=== PATIENT | female | born 1960 | race Caucasian/White ===

== ENCOUNTER → 2017-09-01 16:30 | Outpatient (CLI) | payer OTHER, SELFPAY ==
[2017-09-04 11:02] LABS: HPV Reflexed? NOT INDICATED
== END ==
PROVIDERS: Visit Provider Obstetrics & Gynecology
DX: Z12.4 Encounter for screening for malignant neoplasm of cervix (principal)
CPT/HCPCS: 88175; G0145

== ENCOUNTER 2017-09-20 10:43 | Day surgery (SDC) | payer OTHER, SELFPAY ==
[2017-09-15 17:11] LABS: Hematocrit 37.9 % (37-47); Hemoglobin 12.5 g/dl (12.0-15.0); Mean Corpuscular Hgb 29.1 pg (27.0-32.0); Mean Corpuscular Volume 88.1 fL (81-99); Mean Platelet Vol. 9.7 fl (6.2-12.0); Platelet Count 249 K/mm3 (150-450); RBC Distribution Width CV 12.6 % (11.6-14.6); RBC Distribution Width SD 40.2 fl (35.1-43.9); White Blood Count 5.9 K/mm3 (4.4-11.0)
[2017-09-15 17:13] LABS: International Normalized Ratio 0.9; Prothrombin Time (Protime)PT. 12.5 SECONDS (11.7-14.9)
[2017-09-15 17:14] LABS: Partial Thromboplast Time 30.3 Seconds (24.1-36.2)
[2017-09-15 17:31] LABS: Creatinine, Serum 0.78 mg/dL (0.55-1.02); EST Glomerular Filtration Rate 82 mL/min (>60); Est Glom Filt Rate - Afr Amer 99 mL/min (>60)
[2017-09-15 17:36] LABS: Scan Indicated on CBC? Y/N NO
[2017-09-16 15:09] LABS: Anion Gap 9 (5-15); BUN 14 mg/dL (7-18); Calcium,Total 9.8 mg/dL (8.5-10.1); Chloride 105 mmol/L (98-107); Glucose 81 mg/dL (74-106); Potassium 3.8 mmol/L (3.5-5.1); Sodium Level 138 mmol/L (136-145)
--- NOTE | 2017-09-19 21:47 | PCM.HP.BLA ---
History and Physical Date of Admission: 09/20/17 Surgical History and Physical Felicita Hendricks, a 56 year old female 2 0 4 0 2, presents for Vaginal Hysterectomy and AP Repair on September 20, 2017. -- Prolapse Symptoms -- Felicita cannot walk for long distances anymore as she feels like something is falling out. Cystocele which began 10 years. Felicita claims it started gradually and has been present worsened in last 2 months. It occurs all the time. It is located in the vagina. Felicita characterizes the quality discomfort. Severity is moderate and not improving. MEDICATIONS HISTORY: ALLERGIES: Erythropoietin Derivative, Hives and/or rash Infections - Chicken pox Illnesses - no serious past illnesses Accidents - None Hospitalizations - see surgery Review of Systems: GENERAL - Denies fever, or chills SKIN - Denies skin changes EYES - Denies visual changes EARS - Denies difficulty hearing NOSE - Denies nasal congestion or bleeding MOUTH - Denies sore throat or difficulty swallowing NECK - Denies pain or swelling RESPIRATORY - Denies shortness of breath or wheezing CARDIOVASCULAR - Denies palpitations or chest pain GASTROINTESTINAL - Denies nausea, vomiting, diarrhea, constipation GENITOURINARY - Denies dysuria, frequency of urination, incontinence of urine MUSCULOSKELETAL - Denies joint or muscle pain NEUROLOGICAL - Denies localized numbness or weakness PSYCHIATRIC - Denies depression or anxiety ENDOCRINE - Denies heat or cold intolerance, weight loss or gain HEMATO-IMMUNOLOGIC - Denies excesive bleeding with cuts SOCIAL HISTORY: Alcohol Use - None Smoking - Never Diet - LACTOSE FREE and Hypoglycemic Lifestyle - moderate stress lifestyle and Exercise - active work Seat Belt Use - always 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 1989 Tubal ; - 2. 1974 T and A ; - 3. 1989 (L) Wrist ; - PHYSICAL EXAM BP- 116/68 Sitting, Right arm, regular cuff Weight- 143.19375 lbs Height- 63.5 inch BMI:24.99 CONSTITUTIONAL - NAD, well nourished, and well developed SKIN - No rash, lesions, or ulcers HEENT - Normocephalic, PERRLA, EOMI NECK - No nodes, no nuchal rigidity and thyroid normal size and texture LYMPH NODES - Palpation of lymph nodes in neck and groins within normal limits LUNGS - CTA x2 without wheezes, crackles or rales CARDIAC - Regular rate and rhythm without rubs, murmurs, or gallops ABDOMEN - Without hepatosplenomegaly, distention, masses, rebound, or guarding; normal bowel sounds; no hernias EXTREMITIES - No edema or calf tenderness NEUROLOGICAL - Cranial nerves II-XII grossly intact PSYCHIATRIC - A and O to time, place, person, mood and affect External Genitial Vagina - non-tender without lesions Urethra/Urethral Meatus - non-tender Bladder - non-tender Vagina - vaginal mejia are pink and moist without loss of rugae and no evidence of atropy, large cystocele protruding 2 cm outside vaginal introitus and moderate rectocele Cervix - without cervical motion tenderness and has normal size and features without evident lesions and protrudes 2 cm outside introitus with bearing down Uterus - multiparous size 6 cm & wt 75-125 g Adnexa - clear without masses or tenderness ASSESSMENT/PLAN: 1. Cystocele Midline and Incomplete Uterovaginal Prolapse Very symptomatic prolapse; minimal MIS symptoms. Discussed options for treatment and declines expectant management or pessary. Desires proceeding with surgical repair. Plan Vaginal Hysterectomy and AP Repair. Discussed RBAs and all questions answered.
--- NOTE | 2017-09-20 | HYST_PTH ---
PATIENT: CRISTINA HAMPTON LOC: [facility] U#:[id number] AGE/SX: 56/F ROOM: RE09/20/[address]: Dr. Ruben Abudllahi MD : [id number] BED: DIS: 09/21/2017 SPEC #: [id number] RECD: 09/20/17 11:37 STATUS: ISMA RIVERA #: [id number] JORGE: 09/20/17 00:[address]: Ruben Abdullahi DEPT: SURGICAL PATHOLOGY RECD BY: Gabino Baugh ENTERED: 09/23/17 11:38 SP TYPE: HYSTERECT OTHR DR: Dr. Ale Zhu MD Tissues: Uterus, NOS Procedures: Surgery Specimen Level V HEADER OPERATION: Hysterectomy, A & P repair PRE-OP DIAGNOSIS: Prolapse TISSUE SUBMITTED: Uterus, vaginal mucosa MICROSCOPIC DIAGNOSIS Uterus, vaginal mucosa, hysterectomy: Cervix ? mild chronic cystic cervicitis and hyperkeratosis. Endometrium ? proliferative endometrium. Myometrium ? adenomyosis. - subserosal leiomyoma (0.2 cm in diameter. Vaginal mucosa ? Hyperkeratosis. CLAUDIA:taras 09/24/17 MICROSCOPIC DESCRIPTION Slides are reviewed. GROSS DESCRIPTION Received in fixative is one container labeled with the patient's name and designated uterus and vaginal mucosa. The specimen consists of a hysterectomy specimen consisting of uterus with cervix and detached pieces of mucosal tissue. The uterus with cervix weighs 70 gm and measures 9 x 5 x 4 cm. The serosal surface is dumont, glistening. A minute subserosal nodule is noted measuring 0.2 cm in diameter. The ectocervical mucosa is unremarkable. The external os is slit-like in contour. The endocervical canal measures 4 cm in length and the endocervical mucosa is unremarkable. The triangular endometrial cavity measures 4 cm in length and 2 cm in width. The endometrium is dumont, glistening and unremarkable and measures 0.1 cm in thickness. Sections of the uterine wall reveal multiple ill-defined nodules measuring up to 2 cm in thickness. Also received are five variable sized pieces of mucosal tissue measuring in aggregate 7 x 5 x 0.5 cm. No lesion is identified. Presidential Support Specialist sections are submitted in eight cassettes as follows: 1 - anterior cervix, 2 - posterior cervix, 3 & 4 - anterior uterine wall, 5 & 6 - posterior uterine wall, 7 ? subserosal nodule and ill-defined nodule, 8 ? mucosal tissue. / CLAUDIA:taras 09/20/17 TC: CPT: 20209
--- NOTE | 2017-09-20 10:43 | DT_ITS ---
This patient was seen during an EMR downtime September 20, 2017 - September 27, 2017. This patient may have a combination of paper and electronic documentation or all paper documentation. All documentation is viewable within the e-chart portion of [email or web address] for each patient visit.
[2017-09-24 12:36] LABS: Hematocrit 32.5 % (37-47); Hemoglobin 10.6 g/dl (12.0-15.0); Mean Corpuscular Volume 91.8 fL (81-99); Red Blood Count 3.54 M/mm3 (4.2-5.4); White Blood Count 6.7 K/mm3 (4.4-11.0)
[2017-09-24 12:37] LABS: Mean Corp Hgb Conc 32.6 g/gl (32-36); Mean Corpuscular Hgb 29.9 pg (27.0-32.0); Mean Platelet Vol. 10.5 fl (6.2-12.0); Platelet Count 200 K/mm3 (150-450); RBC Distribution Width CV 12.4 % (11.6-14.6); RBC Distribution Width SD 40.2 fl (35.1-43.9); Scan Indicated on CBC? Y/N NO
[2017-09-25 07:38] LABS: Creatinine, Serum 0.75 mg/dL (0.55-1.02); EST Glomerular Filtration Rate 86 mL/min (>60); Est Glom Filt Rate - Afr Amer 104 mL/min (>60)
--- NOTE | 2017-12-02 06:19 | OP_ITS ---
DATE OF SERVICE: 09/20/2017 DATE OF SERVICE: 09/20/2017 SURGEON: Ruben Abdullahi M.D. TICKET TAKER FERRYBOAT: MARLY Mantilla ANESTHESIA: Francisco Mello CRNA. TYPE OF ANESTHESIA: General endotracheal. PREOPERATIVE DIAGNOSES: Uterovaginal prolapse, cystocele, rectocele. POSTOPERATIVE DIAGNOSES: Uterovaginal prolapse, cystocele, rectocele. PROCEDURE: Vaginal hysterectomy and anterior and posterior repair. FINDINGS: Approximately a 6-7 cm sized uterus with normal visualized tubes and ovaries. Cervix, which protruded 2-3 cm outside the vaginal introitus with tenaculum pulldown, and a large cystocele, protruding about 2-3 cm outside the introitus. Rectocele, which protruded to the introitus after the anterior repair portion of the procedure was done. INDICATIONS: This is a 56-year-old patient, who has had extremely symptomatic vaginal prolapse symptoms. Given this, she desired that we proceed with the above surgery. The patient has been counseled regarding the risks and indications of this procedure, including the possibility of bleeding, infection, and injury to surrounding structures, such as bowel and bladder, and desired that we proceed. She, also, understands that after this procedure, prolapse may recur and that there is no guarantee that her symptoms will be updated. All questions were answered and we consider the patient well-informed. DESCRIPTION OF PROCEDURE: The patient was taken to the operating room where after induction of general anesthesia, the patient was prepped and draped in usual sterile fashion and a Alvarado catheter was placed. The bladder was drained of approximately 100 mL of clear yellow urine with a red rubber catheter. Anterior cervix was grasped with a tenaculum and cervix was circumscribed anteriorly with cautery on a setting of 35 gallardo coagulation. Anterior vaginal mucosa was undermined, but we were unable to enter anterior peritoneum. Posterior cervix was circumscribed with a knife and attempts were made again to enter it posteriorly , but were unsuccessful. After 2 bites on either side of the uterine cervix, ligating each pedicle with 0 Vicryl suture, we were able to enter anteriorly and posteriorly and progressive bites were continued on either side of the uterine cervix, ligating each pedicle with 0 Vicryl suture. Superior pedicles were ligated x2 with 0 Vicryl suture and the uterus was removed. The posterior vaginal cuff was then closed with running locked 0 Vicryl suture to help with hemostasis and pedicles were examined and noted to be hemostatic. The peritoneum was then closed in a pursestring fashion, incorporating superior pedicles into this stitch and attention was turned toward the anterior repair portion of the procedure. The anterior vaginal mucosa was undermined, divided, and imbricated toward the midline with interrupted 0 Vicryl suture. Vaginal mucosa was trimmed and then, closed with running locked 2-0 chromic suture. The vaginal cuff was then closed with interrupted [id number] 0 Vicryl suture front to back. Hemostasis was noted. Remnants of the hymenal ring were grasped with Allises and a V-shaped incision was made in the perineum. The posterior vaginal mucosa was undermined, divided, and imbricated toward the midline with interrupted 0 Vicryl suture. Vaginal mucosa was trimmed and then, closed with running locked 2-0 chromic suture to the level of the hymenal ring. Remnants of the bulbocavernosus muscle were grasped with Allises and brought toward the midline with a single [id number] 0 Vicryl suture. Perineum was closed in the usual fashion with interrupted and subcuticular 2-0 chromic suture. Vagina was packed with 1-inch iodoform tape. Alvarado catheter was released and clear yellow urine was noted. The patient tolerated the procedure well and was taken to the recovery room in satisfactory condition. Sponge, instrument, and needle counts were all reported correct. Estimated blood loss for the case was approximately 100 mL. Cefotan 2 grams IV was given prior to beginning the operative procedure. There were no apparent complications of the surgery. SPECIMENS TO PATHOLOGY: Uterus and vaginal mucosa. Ruben Abdullahi MD T: NTS JOB: [id number]
== END 2017-09-21 17:16 | disposition home or self-care (01) ==
LOC: SDC 09-22 10:43 → MS3 09-22 12:16
PROVIDERS: Family Provider Family Medicine; PCP Family Medicine; Visit Provider Obstetrics & Gynecology
PROC: (CPT 58260; principal; 2017-09-20 11:55)
DX: N30.20 Other chronic cystitis without hematuria (principal); N88.0 Leukoplakia of cervix uteri; D25.2 Subserosal leiomyoma of uterus; N80.0 Endometriosis of uterus; N81.11 Cystocele, midline; N81.4 Uterovaginal prolapse, unspecified; Z87.891 Personal history of nicotine dependence; M46.92 Unspecified inflammatory spondylopathy, cervical region
CPT/HCPCS: 00942; 57260; 58260; 36415; 80048; 82565; 85027; 85610; 85730; 86850; 86900; 88307; J7040; J7120; A4216; J2405

== ENCOUNTER → 2018-01-28 15:40 | Outpatient (CLI) | payer OTHER, SELFPAY ==
--- NOTE | 2018-01-28 15:44 | BI_ITS ---
MAMMOGRAPHY - BILATERAL SCREENING REASON FOR EXAM: Female, 57 years old. Routine annual screening examination. PERTINENT HISTORY: Sister with breast cancer. Grandmother with breast cancer. TECHNIQUE: Digital bilateral breast ray (3D mammographic acquisition) in the CC and MLO projections. 2-D mediolateral oblique (MLO) and craniocaudad (CC) views of both breasts were obtained. CAD: Full Field Digital Mammography with Computer Added Detection was performed. COMPARISON: Comparison is made with prior outside examination dated December 30, 2012. FINDINGS: Breast Composition: There are scattered areas of fibroglandular density. There are no dominant masses or suspicious calcifications. No other significant abnormalities are identified. There has been no significant change since the prior study. BI/SCREENING MAMM (CAD), BILAT IMPRESSION: Stable bilateral screening mammogram. Yearly follow-up mammogram recommended. (A) ASSESSMENT CATEGORY: BIRADS Category 1: Negative. A letter regarding these results will be sent to the patient by the facility within 30 days. Approximately 10% of breast cancers are not detected by mammography. A normal mammogram should not delay biopsy of a clinically suspicious abnormality. [id number] Electronically Signed: Dre Echavarria MD at 15:56 EDT Tel [phone], Service support ,
== END ==
PROVIDERS: Family Provider Family Medicine; PCP Family Medicine; Referring Provider Obstetrics & Gynecology; Visit Provider Obstetrics & Gynecology
DX: Z12.31 Encounter for screening mammogram for malignant neoplasm of breast (principal)
CPT/HCPCS: 77063; 77067

== ENCOUNTER → 2019-02-01 | Outpatient (CLI) | payer OTHER, SELFPAY ==
--- NOTE | 2019-02-01 07:36 | BI_ITS ---
MAMMOGRAPHY - BILATERAL SCREENING REASON FOR EXAM: Female, 58 years old. Routine annual screening examination. PERTINENT HISTORY: Sister with breast cancer. Grandmother with breast cancer. TECHNIQUE: Digital bilateral breast monica (3D mammographic acquisition) in the CC and MLO projections. 2-D mediolateral oblique (MLO) and craniocaudad (CC) views of both breasts were obtained. CAD: Full Field Digital Mammography with Computer Added Detection was performed. COMPARISON: Comparison is made with prior examination dated January 28, 2018. FINDINGS: Breast Composition: There are scattered areas of fibroglandular density. There are no dominant masses or suspicious calcifications. No other significant abnormalities are identified. There has been no significant change since the prior study. BI/SCREEN MAMM (CAD) W/MONICA BILAT IMPRESSION: Stable bilateral screening mammogram. Yearly follow-up mammogram recommended. (A) ASSESSMENT CATEGORY: BIRADS Category 1: Negative. A letter regarding these results will be sent to the patient by the facility within 30 days. Approximately 10% of breast cancers are not detected by mammography. A normal mammogram should not delay biopsy of a clinically suspicious abnormality. [id number] Electronically Signed: Dre Echavarria, at 9:37 EDT , Service support ,
== END | disposition home or self-care (01) ==
LOC: OPBI 07:34
PROVIDERS: Family Provider Family Medicine; PCP Family Medicine; Referring Provider Family Medicine; Visit Provider Family Medicine
DX: Z12.31 Encounter for screening mammogram for malignant neoplasm of breast (principal)
CPT/HCPCS: 77063; 77067

== ENCOUNTER → 2019-02-20 | Outpatient (CLI) | payer OTHER, SELFPAY ==
--- NOTE | 2019-02-20 14:38 | RAD_ITS ---
STUDY: X-RAY - LEFT WRIST REASON FOR EXAM: Female, 58 years old. Pain TECHNIQUE: 3 view(s) of the wrist were obtained. COMPARISON: None. FINDINGS: There is a well-corticated irregular appearance of the distal radius and ulna. There is apparent old fracture of the distal ulna at the ulnar styloid process. There is evidence of an old fracture of the distal radius. There is a proximal migration of the wrist bones with a diminished if visible lunate bone. There is moderate narrowing of the radiocarpal joint. Normal carpometacarpal articulation of the thumb. Normal second through fifth carpometacarpal articulations. Normal visualized metacarpal bones. RAD/Wrist min 3 Views IMPRESSION: Kienbocks deformity of the wrist, nonvisualization of the lunate suspect old injury. Proximal migration of the wrist with the capitate appearing to abut the radiocarpal joint. Old injuries of the distal radius and ulna. Recommend correlation with history. Electronically Signed: Maral Doyle MD at 17:55 EST Tel , Service support ,
== END | disposition home or self-care (01) ==
LOC: MTRAD 14:37
PROVIDERS: Family Provider Family Medicine; PCP Family Medicine; Referring Provider Family Medicine; Visit Provider Family Medicine
DX: M25.532 Pain in left wrist (principal)
CPT/HCPCS: 73110

== ENCOUNTER → 2019-03-07 16:28 | Outpatient (CLI) | payer OTHER, SELFPAY ==
[2019-03-07 18:03] LABS: Thyroid Stim Hormone (TSH) 1.18 uIU/mL (0.358-3.74)
== END ==
PROVIDERS: Family Provider Family Medicine; PCP Family Medicine; Visit Provider Family Medicine
DX: L65.9 Nonscarring hair loss, unspecified (principal)
CPT/HCPCS: 36415; 84436; 84443

== ENCOUNTER 2019-03-24 09:48 | Emergency (ER) | payer OTHER, SELFPAY ==
[2019-03-24 09:49] VITALS: BP 117/77; PULSE 70; RESP 17; TEMP 36.8; O2SAT 99; BMI 25.2
--- NOTE | 2019-03-24 10:06 | RAD_ITS ---
STUDY: X-RAY - LEFT WRIST REASON FOR EXAM: Female, 58 years old. Wrist pain. TECHNIQUE: 3 view(s) of the wrist were obtained. COMPARISON: Comparison is made with prior study February 20, 2019. FINDINGS: Deformity of the distal radius and distal ulna anchored with old injury. There is degenerative arthrosis of the radiocarpal articulation. There is a neutral ulnar variance. There is a fracture through the waist of the scaphoid bone. This may be subacute in nature. There is disruption of the normal proximal carpal bones suggestive of a perilunate subluxation. Calcification of the trying fibrocartilage. Normal carpometacarpal articulation of the thumb. Normal second through fifth carpometacarpal articulations. Normal visualized metacarpal bones. Soft tissue swelling. RAD/Wrist min 3 Views IMPRESSION: Essentially no change since prior study. Nondisplaced fracture through the waist of the navicular bone subacute in nature. Findings suggestive of a perilunate subluxation. Electronically Signed: Dre Echavarria, at 10:33 EST , Service support ,
--- NOTE | 2019-03-24 11:14 | ED.DCSUM_ITS ---
- ER Visit Summary Date of Service: 03/24/19 Chief Complaint: [Injury to left wrist] History of Present Illness: The patient is a 58 F [the emergency department complaint of injury to the left wrist that occurred today while at work. Patient states that she is right-hand dominant. Patient was putting some keys on top of a pure L bottle when she was doing a lot of repetitive motions when she developed sudden onset of severe pain in her left wrist. Patient complains of pain with range of motion. Patient states she is had prior surgery on that left wrist. ] Physical Examination: [HEENT-PERRLA, EOMI. Cranial nerves II through XII grossly intact. TMs clear. Mucous membranes moist. No adenopathy. Cardiovascular-regular rate and rhythm without murmur or ectopy Lungs-clear to auscultation, chest wall stable without crepitus or subcu emphysema Abdomen-normoactive bowel sounds, soft, nontender, no rebound or rigidity, no peritoneal signs. Extremities-intact ?4, normal range of motion, normal pulses, atraumatic. Left wrist-patient has tenderness palpation over the distal radius. Patient has pain with range of motion flexion extension. She is neurovascular intact distally. There is no ecchymosis or bruising.] Test Results: [X-rays of the left wrist were unchanged from prior x-ray she did have a nonhealed fracture of her scaphoid and perilunate subluxation. Study however is unchanged from prior.] Emergency Department Course and Treatment: [Patient given a thumb spica splint. She will be given work restrictions.] Treatment Plan: [She has meloxicam at home. Patient to follow-up with corporate care in 5 to 7 days.] Disposition: [Discharged home in stable condition.] Impression: [Left wrist sprain] This note was generated with [employer] dictation software. It may contain incorrect words, spelling, and punctuation that were not noted in review of the chart prior to signing ED Disposition - Plan for ED Patient: Referrals: Ale Zhu MD [Primary Care Provider] -
--- NOTE | 2019-03-24 11:16 | DCINST.ED_ITS ---
ED Disposition - Plan for ED Patient: Instructions: Wrist Sprain Ref[facility]: [facility] [GROUP OF PHYSICIANS] - 5-7 Days
--- NOTE | 2019-03-24 11:16 | ED.DEP ---
ED Disposition - Plan for ED Patient: Instructions: Wrist Sprain Referrals: Ale Zhu MD [Primary Care Provider[facility] - [facility] [GROUP OF PHYSICIANS] - 5-7 Days
== END 2019-03-24 11:32 | disposition home or self-care (01) ==
LOC: ED 10:13
PROVIDERS: Emergency Provider Emergency Medicine; Family Provider Family Medicine; PCP Family Medicine
DX: S63.502A Unspecified sprain of left wrist, initial encounter (principal); X50.3XXA Overexertion from repetitive movements, initial encounter; Y93.89 Activity, other specified; Y92.89 Other specified places as the place of occurrence of the external cause; Y99.0 Civilian activity done for income or pay
CPT/HCPCS: 73110; 99283

== ENCOUNTER 2019-11-10 07:02 | Emergency (ER) | payer OTHER, SELFPAY ==
[2019-11-10 06:48] VITALS: BMI 25.2
[2019-11-10 07:02] VITALS: BP 122/81; PULSE 79; RESP 16; TEMP 36; O2SAT 98; BMI 27.1
--- NOTE | 2019-11-10 07:22 | ED.VIS.GEN ---
History of Present Illness Chief Complaint: Upper Extremity Injury Informant: Patient Onset: Today Narrative: Patient presents to the emergency department with swelling pain and bruising to the right index finger. Patient states she was getting ready for work today and symptoms started abruptly. She does not recall an injury however. She states that she developed some tingling the lateral aspect of her hand and went to the now clinic where it was felt that she could possibly be having a stroke so she was sent to the emergency department. Patient denies any motor symptoms. She denies any speech vision symptoms. She denies a headache. Past Medical History - Allergies and Home Meds Allergies/Adverse Reactions: Allergies erythromycin base Allergy (Verified 11/10/19 07:05) Rash Primary Care Physician: Ale Zhu MD [Primary Care Provider] - Smoking Status: Former smoker Review of Systems General: Denies: Chills, Fever, Sweats Eyes: Denies: Visual changes - bilaterally, Diplopia ENT: Denies: Rhinorrhea, Sore throat Cardiovascular: Denies: Chest pain, Palpitations Respiratory: Denies: Dyspnea, Cough, Dyspnea on exertion Gastrointestinal: Denies: Abdominal pain, Nausea, Vomiting, Diarrhea, Melena, Hematochezia Genitourinary: Denies: Dysuria, Hematuria, Frequency Musculoskeletal: Reports: Swelling, Extremity Pain. Denies: Back pain Skin: Denies: Rash, Wounds Neurological: Reports: Parasthesia. Denies: Headache, Weakness, Numbness Physical Exam Vital Signs/Narrative: Vital Signs Temp Pulse Resp BP Pulse Ox 11/10/19 07:02 96.8 F L 79 16 122/81 H 98 Inital Vital Signs reviewed: Yes General: Well nourished, Well developed, No Acute Distress Head: Normocephalic, Atraumatic Eyes: Perrl, EOMI ENT: Moist mucous membranes, No rhinorrhea Neck: Supple, Nontender Cardiovascular: Regular rate, Regular rhythm, No murmurs Respiratory: No distress, CTA bilaterally, Chest nontender Abdomen: Soft, Nontender, Nondistended, Normal bowel sounds Back: Nontender, Normal Inspection Extremities: - - There is some swelling ecchymosis and tenderness along the volar aspect of the right index finger along the MCP and proximal phalanx. Painful flexion at that joint. There are no breaks in the skin. No lymphangitic streaking. No significant erythema. Skin: Normal color, No rash Neurological: Alert, Oriented x3, Cranial nerves II-XII grossly intact, Normal Strength, Normal Sensation, - - Specifically no motor or sensory loss. However reported tingling in the index finger and fourth and fifth fingers and lateral dorsum of the right hand Psychological: Normal affect, Normal Mood Diagnostic/Tx/Re-eval - Medical Decision Making Patient does not wish an x-ray. She is concerned about cost of her visit. When I recommend that she tammy tape the fingers as she wishes to continue to work and does not want a splint to impede work. She has a hand surgeon that she sees and may follow-up with them. We talked about infection and stroke symptoms and return instructions are understood. ED Disposition - Plan for ED Patient: Disposition: Home or Assisted Living Diagnosis: Sprain of right index finger Instructions: ED Sprain Finger Referrals: Ale Zhu MD [Primary Care Provider] - 10-14 Days if not better
[2019-11-10 07:39] VITALS: RESP 16
--- NOTE | 2019-11-10 07:39 | ED.RN ---
REVIEWED D/C INSTRUCTIONS, FOLLOW UP CARE, AND S/S THAT WOULD WARRANT A RETURN TO THE ED WITH PT. PT VERBALIZED AN UNDERSTANDING AND DENIES FURTHER QUESTIONS FOR THIS RN. PT SKIN P/W/D, PT A&O X 3, NO DISTRESS NOTED. PT AMBULATED OUT OF ED, GAIT STEADY.
== END 2019-11-10 07:40 | disposition home or self-care (01) ==
LOC: ED 07:30
PROVIDERS: Emergency Provider Emergency Medicine; PCP Family Medicine
DX: S63.610A Unspecified sprain of right index finger, initial encounter (principal); Z87.891 Personal history of nicotine dependence; X58.XXXA Exposure to other specified factors, initial encounter; Y93.89 Activity, other specified; Y92.009 Unspecified place in unspecified non-institutional (private) residence as the place of occurrence of the external cause; Y99.8 Other external cause status
CPT/HCPCS: 99282

== ENCOUNTER → 2020-06-14 12:16 | Outpatient (CLI) | payer OTHER, SELFPAY ==
--- NOTE | 2020-06-14 12:20 | RAD_ITS ---
STUDY: X-RAY - LEFT TIBIA AND FIBULA REASON FOR EXAM: Female, 59 years old. Left lower leg pain, walks on concrete all day long at work -- x 1 month TECHNIQUE: 2 view(s) of the tibia and fibula were obtained. COMPARISON: None. FINDINGS: Normal visualized tibia. Normal visualized fibula. The soft tissue structures are unremarkable. RAD/Tibia & Fibula 2 Views IMPRESSION: Normal x-ray examination of the tibia and fibula. Electronically Signed: Der Echavarria MD at 15:01 EST , Service support ,
== END ==
PROVIDERS: PCP Family Medicine; Referring Provider Family Medicine; Visit Provider Family Medicine
DX: M79.605 Pain in left leg (principal)
CPT/HCPCS: 73590